=== PATIENT | female | born 1990 | race Caucasian/White ===

== ENCOUNTER 2016-11-22 07:42 | Emergency (ER) | payer OTHER ==
[~2016-11-22] VITALS: Ht 167.6 cm; Wt 68.2 kg
[2016-11-22 07:46] VITALS: BP 129/91; PULSE 90; RESP 16; O2SAT 99
--- NOTE | 2016-11-22 08:04 | ED.REPORT ---
HPI-Chest Pain Under 40 Date of Service Nov 22, 2016 ED Provider: Brenotn Carver MD This is a 26 year old female presenting to the emergency department due to left sided chest pain that began 24 hours ago. Pt describes positional, sharp, left chest pain that is exacerbated by ambulation, deep inspiration and radiates to the back with certain movements. Associated with mild SOB at times. Chest pain rated at 8/10 at times. Reports increased stress in last three weeks. Denies lower extremity swelling, nausea, vomiting, diaphoresis, numbness, dizziness, lightheadedness, or prolonged periods of inactivity. Nursing Notes Stated Complaint: CHEST PAIN Chief Complaint: Chest Pain Nursing Notes Reviewed: Yes ([email or web address], meds not reconciled) Allergies: Coded Allergies: acetaminophen (Verified Allergy, Unknown, vomiting, 11/22/16) hydrocodone (Verified Allergy, Unknown, vomiting, 11/22/16) General Time Seen by MD: 08:02 Chief Complaint Chest pain Hx Obtained From: Patient Arrived By: Walk-in Sudden in Onset?: Yes Onset Occurred: 21 - 23 hours ago Symptom Duration: Since onset Severity: Current: Moderate Pertinent Negative: Pt denies other symptoms Recent Healthcare: No recent doctor visit, No recent hospitalization Similar Sx Previous: No Risk Factors )( CAD Risk Stratification No risk factors )( PE Risk Stratification No Coagulation Disorder, No Estrogen Medicine / BCP's, No Regent, No Immobilization, No Malignancy, No , No , No Previous DVT, No Previous PE, No Surgery Last 60 Days, No Trauma Risk factors reviewed, No risk factors PERC Rule PERC Result: Pretest under 15%, All PERC criteria "No", PERC rule satisfied Past Medical History Past Medical History Denies Smoking History Never Smoker Ambulatory Status Independent Review of Systems Constitutional: Denies: Chills, Fever Respiratory: Reports: Shortness of breath, Denies: Non-productive cough Cardiovascular: Reports: Chest pain GI: Denies: Abdominal pain, Constipation, Diarrhea, Nausea, Vomiting Neurologic: Denies: Change LOC, Headache, Lightheaded, Numbness Complete sys rev & neg: except as marked. Physical Exam Initial Vital Signs Vital Signs (First) Date Time Temp Pulse Resp B/P Pulse Ox O2 Delivery O2 Flow Rate FiO2 11/22/16 07:46 36.3 90 16 129/91 99 Initial VS: Reviewed, Vital signs normal Head / Eyes: Atraumatic, Normocephalic, PERRL ENT: Mucous membranes moist, Conjunctiva normal, No scleral icterus Neck: Supple, Non-tender, Full range of motion Abdomen / GI: Soft, Non-tender, No guarding, No rebound, No distention Extremities: Vascular intact, Neuro intact, No swelling, No tenderness Skin: Warm, Dry, No cyanosis Neurologic: Alert, Oriented, Nonfocal Psychiatric: Mood/affect normal, Behavior normal, Normal thought content General/Constitutional: Awake, Alert Respiratory / Chest: Breath sounds NL, Breath sounds = bilat, No respiratory distress, No rales, No rhonchi, No wheezing, No chest tenderness Cardiovascular: Heart rate NL, Regular rhythm, Heart sounds NL, No murmurs, Peripheral circulation NL, Pulses = bilaterally, No gross BP differential Interpretation & Diagnostics ECG Interpretation ECG Interpretation: NSR at a rate of 75 Time: 08:53 Interpreted by: ED physician X-Ray Chest Interpretation Chest Xray Interpretation: IMPRESSION: No acute cardiopulmonary disease. Dictated by: Scott Perales M.D. on 11/22/2016 at 9:07 Approved by: Scott Perales M.D. on 11/22/2016 at 9:07 Re-Eval/Medical Decision Med Decision/Clinical Course This is a 26-year-old female presents complaining of left sided chest discomfort is slightly pleuritic, and worsened by turning twisting or moving of the chest. There is no shortness of breath, no diaphoresis or nausea, no fevers or chills. The patient's concerned about her heart, but has no risk factors for underlying heart disease. She is also PERC rule negative. She has normal vitals, she does have pain with twisting turning a mechanical movement-suggesting more likely an musculoskeletal cause. Her lungs are clear, vital signs are normal, she has no clinical findings of venous thromboembolism on exam. She is an overall low risk probability for PE, and again is PERC rule negative, so additional testing is not indicated. An EKG is normal without signs of ischemia and dysrhythmia or other concerning findings-no findings suggestive preexcitation syndrome or dysrhythmia. Chest x-ray is also negative with no signs of pneumothorax, pneumonia or other visible pathology. The patient's presentation is low risk for alternative pathology such that I am not finding indication for laboratory testing. This, he is taking Tylenol and discomfort and is comfortable with continuing this at home. Reassurance provided. Routine precautions are reviewed. The patient is discharged in stable condition. Source of Hx: Old records Re-Evaluation/Progress : Time of Eval: 09:25 Re-Evaluation/Progress Note: Discussed lab and imaging results, plan for d/c, all questions addressed Differential Diagnosis: Positive: Chest pain, acute, Musculoskeletal pain, Negative: Acute coronary syndrome, Acute myocardial infarct, Congestive heart failure, Dysrhythmia, Esophageal rupture, Gun shot wound chest, Myocardial infarction, Pneumomediastinum, Pneumonia, Pneumothorax, Pulmonary edema, Pulmonary embolism Counseled Regarding: Diagnosis, Lab results, Need for follow-up, When/why to return to ED Discharge & Departure Primary Impression: Chest pain Chest pain type: unspecified Qualified Code: R07.9 - Chest pain, unspecified Disposition: Home Discharge Condition All VS Reviewed: Yes Condition: Stable Additional Instructions: 1. Your EKG and Xray were normal. 2. There were no findings of a dangerous condition. 3. Activities as tolerated 4. Symptoms are expected to resolve with time. 5. Return if new or worsening symptoms (increasing pain, fever, shortness of breath, etc...) Scribe Attestation Portions of this note were transcribed by Elías Bryant. I, Dr. Carver personally performed the history, physical exam and medical decision-making; I reviewed and confirmed the accuracy of the information in the transcribed note. Signed by: Elías Bryant. 11/22/2016, 15:00. Brenton Carver MD Nov 22, 2016 08:04 ELÍAS BRYANT Nov 22, 2016 08:10
--- NOTE | 2016-11-22 09:09 | DRSVH ---
PROCEDURE: X-RAY CHEST, TWO VIEWS ([id number]) INDICATIONS: CP TECHNIQUE: 2 views of the chest were acquired. COMPARISON: None. FINDINGS: Surgical changes and devices: None. Lungs and pleura: No pleural effusions or pneumothorax. Lungs are clear. Mediastinum: Mediastinal contours are normal. Heart size is normal. Bones and chest wall: No suspicious bony abnormalities. Soft tissues appear unremarkable. IMPRESSION: No acute cardiopulmonary disease. Dictated by: Scott Perales M.D. on 11/22/2016 at 9:07 Approved by: Scott Perales M.D. on 11/22/2016 at 9:07
[2016-11-22 10:33] VITALS: BP 129/91; PULSE 90; RESP 16; O2SAT 99
== END 2016-11-22 09:50 | disposition home or self-care (01) ==
LOC: SED 07:42
DX: R07.89 Other chest pain (principal); R06.02 Shortness of breath; Z88.5 Allergy status to narcotic agent; Z88.8 Allergy status to other drugs, medicaments and biological substances